=== PATIENT | female | born 1995 | race Caucasian/White ===

== ENCOUNTER 2018-02-21 09:30 | Emergency (ER) | END 2018-02-21 12:53 | disposition home or self-care (01) ==

== ENCOUNTER 2018-07-19 20:22 | Emergency (ER) | payer SELFPAY ==
[~2018-07-19 20:22] MED LIST: CIPR500T4 PO; HYDR-3029 PO
== END 2018-07-19 21:20 | disposition left against medical advice (07) ==
LOC: E/R 20:22
DX: Z53.21 Procedure and treatment not carried out due to patient leaving prior to being seen by health care provider (principal)